=== PATIENT | female | born 1975 | race Caucasian/White ===

== ENCOUNTER → 2016-11-21 | Outpatient (CLI) | payer OTHER | LOC: FIMAGING 08:16 | PROVIDERS: ATTEND Physician Assistant | DX: Z12.31 Encounter for screening mammogram for malignant neoplasm of breast (principal) | CPT/HCPCS: G0202 ==

== ENCOUNTER → 2017-07-24 | Outpatient (CLI) | payer OTHER | LOC: BMCIMAGING 13:49 | PROVIDERS: ATTEND Physician Assistant | DX: M17.12 Unilateral primary osteoarthritis, left knee (principal) ==

== ENCOUNTER 2017-11-25 19:04 | Emergency (ER) | payer OTHER ==
[2017-11-25 19:09] VITALS: BP 125/91
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
== END 2017-11-25 19:15 ==
DX: Z04.3 Encounter for examination and observation following other accident (principal); V49.40XA Driver injured in collision with unspecified motor vehicles in traffic accident, initial encounter; Y92.410 Unspecified street and highway as the place of occurrence of the external cause; Y99.8 Other external cause status; Y93.89 Activity, other specified

== ENCOUNTER 2018-05-09 14:57 | Emergency (ER) | payer OTHER ==
[2018-05-09] MEDS ORDERED: ONDANSETRON DISINTEGRATING 4 MG TAB PO ONE (16:03)
[2018-05-09] MEDS ORDERED: IBUPROFEN 600 MG TAB PO ONE (16:03)
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
[2018-05-09 17:36] VITALS: BP 121/66
[2018-05-09] MEDS ORDERED: ACETAMINOPHEN 500 MG TAB PO ONE (17:41)
[2018-05-09] MEDS ORDERED: LIDOCAINE 4%/MENTHOL 1% PATCH TD ONE (17:41)
[2018-05-09] MEDS ORDERED: PATCH REMOVAL 1 EA PATCH TD SCH (21:00)
== END 2018-05-09 17:55 | disposition home or self-care (01) ==
DX: S06.0X9A Concussion with loss of consciousness of unspecified duration, initial encounter (principal); Y35.812A Legal intervention involving manhandling, bystander injured, initial encounter; Y92.213 High school as the place of occurrence of the external cause